=== PATIENT | male | born 1970 | race Caucasian/White ===

== ENCOUNTER 2021-01-25 16:06 | Outpatient (REF) | payer BC, SELFPAY ==
[2021-01-25 18:20] LABS: PSA,Total (Free>4and<10) 0.29 ng/mL (0.00-4.00)
== END 2021-01-25 16:07 | disposition home or self-care (01) ==
LOC: HO.LAB 16:06
PROVIDERS: PCP Internal Medicine; Visit Provider Urology
DX: Z12.5 Encounter for screening for malignant neoplasm of prostate (principal); N32.81 Overactive bladder
CPT/HCPCS: 36415; 84153

== ENCOUNTER → 2021-01-27 13:35 | Outpatient (BNVA) | payer BC, SELFPAY | PROVIDERS: PCP Internal Medicine; Visit Provider Urology ==

== ENCOUNTER → 2022-01-28 15:36 | Outpatient (BNVA) | payer BC, SELFPAY | PROVIDERS: PCP Internal Medicine; Visit Provider Urology | DX: N32.81 Overactive bladder (principal) | CPT/HCPCS: 51798 ==

== ENCOUNTER 2023-02-02 07:39 | Outpatient (REF) | payer BC, SELFPAY ==
[2023-02-02 09:15] LABS: Prostate Specific Antigen 0.34 ng/mL (<0.05-4.0)
== END 2023-02-02 07:40 | disposition home or self-care (01) ==
LOC: HO.LAB 07:39
PROVIDERS: Visit Provider Urology
DX: N32.81 Overactive bladder (principal); Z12.5 Encounter for screening for malignant neoplasm of prostate
CPT/HCPCS: 36415; 84153

== ENCOUNTER 2023-02-03 15:45 | Outpatient (AMB) | payer BC, SELFPAY ==
--- NOTE | 2023-02-03 15:52 | MHC.OFFVIS ---
Intake Intake Visit Reasons: 1yr follow up/PSA(set) Allergies menicycline Allergy (Intermediate, Uncoded 01/24/22 16:13) rash penicillin Allergy (Intermediate, Uncoded 01/24/22 16:13) rash percocet Allergy (Intermediate, Uncoded 01/24/22 16:13) rash HPI HPI Comments History of Present Illness Details Eliezer is a pleasant male. He is a patient of Dr. Velasquez. He is seen for the following urologic conditions - lower urinary tract symptoms Telemedicine Evaluation 15 min Consultation Doximity Ale Video attempted PSA remains low Family history of prostate cancer Can follow with primary care Lower urinary tract symptoms Currently taking saw srinivasa Happy with voiding performance Prior therapy with tamsulosin which caused retrograde ejaculation Family history prostate cancer in his father - diagnosed went aged late 60s PSA 02/07 0.3, 02/09 0.34 Normal testosterone seen on testing 11/05 [facility] Medical History Urgency-frequency syndrome Surgical History H/O knee surgery Family History Father Diabetes HTN (hypertension) Mother HTN (hypertension) Sister Diabetes Social History Alcohol intake: current Alcohol intake frequency: holidays/special occasions only Patient Tobacco Use Status: Former Tobacco user Review of Systems Const All systems reviewed & are unremarkable except as noted in HPI and below Reports no additional complaints Resp Reports no additional complaints GI Reports no additional complaints Reports as per HPI Musc Reports no additional complaints Physical Exam Telemedicine evaluation Appropriate responses Regular breathing rate and rhythm HEENT Head: Yes normal to inspection Ears: hearing grossly normal bilaterally Eyes General: appearance normal, both eyes and all related structures Neck Neck: Yes normal visual inspection Chest Chest palpation & inspection: normal inspection of the chest Resp Effort & Inspection: normal respiratory effort and able to speak in complete sentences Assessment & Plan Assessment & Plan (1) Urgency-frequency syndrome: Code(s): N32.81 - Overactive bladder Plan P.r.n. follow-up Patient Instructions: Imaging studies, laboratory and physical exam results were discussed and reviewed in detail. No major barriers to patient understanding were identified. An opportunity to ask questions regarding the treatment plan was provided. All questions were answered. The patient expressed understanding and agreement with the above treatment plan. The patient is aware they should contact our office by phone for worsening of their current condition or the appearance of new urologic symptoms. Compliance is encouraged with any medications and followup testing that is ordered. It is a privilege to participate in the urologic care of your patient. If you have any questions or concerns regarding treatment for the above conditions, or other urologic issues, please do not hesitate to contact me. The office telephone contact is [phone]. This note is constructed using voice recognition software. While every effort has been made to ensure accuracy supervisor boilermaking shop errors may have been included. Yours sincerely, Dr Simon Esposito MD, [facility] - Urology Providers of Expert, Compassionate Care for the Genitourinary System Telehealth Telehealth Location of provider rendering services: practice address Location of patient: address on file Patient Identification confirmed using: Name, : Yes Telehealth method: voice only Patient verbally consented to treatment: Yes Patient verbally consented to billing insurance company: Yes Patient informed of any privacy concerns related to visit: Yes Coding Level of Care Code Est Pt Level 4 (11404) Diagnoses Urgency-frequency syndrome N32.81
== END 2023-02-03 16:27 | disposition home or self-care (01) ==
LOC: HO.HUSH 15:45
PROVIDERS: PCP Internal Medicine; Visit Provider Urology
DX: N32.81 Overactive bladder (principal)
CPT/HCPCS: 99442

== ENCOUNTER → 2023-02-03 15:45 | Outpatient (BNVA) | payer BC, SELFPAY | PROVIDERS: PCP Internal Medicine; Visit Provider Urology ==